=== PATIENT | female | born 1975 | race Two or more races ===

== ENCOUNTER → 2023-02-06 | Emergency (ER) | payer OTHER ==
[~2023-02-06] VITALS: Ht 162.6 cm; Wt 61.2 kg
[~2023-02-06] MED LIST: PEPCID AC20 MG PO; ZOFRAN8 MG PO
== END | disposition home or self-care (01) ==
LOC: ER 20:45
DX: K52.89 Other specified noninfective gastroenteritis and colitis (principal); R11.10 Vomiting, unspecified; Z20.822 Contact with and (suspected) exposure to COVID-19